=== PATIENT | female | born 1940 | race Caucasian/White ===

== ENCOUNTER 2017-05-23 07:12 | Inpatient (IN) | payer MEDICARE ==
[2017-05-23] MEDS ORDERED: RX INFO: IV CONTRAST WAS GIVEN 1 EACH MISC MISCELLANE PRN (07:34)
[2017-05-23] MEDS ORDERED: SODIUM CHLORIDE 0.9% 500 ML IV STA (07:34)
[2017-05-23] MEDS ORDERED: ONDANSETRON 4 MG/2 ML VIAL IVP STA (07:34)
--- NOTE | 2017-05-23 07:38 | ED ---
General Adult HPI - General Chief complaint: Abdominal Pain Stated complaint: Diverticulitis Time Seen by Provider: 05/23/17 07:20 Source: patient, RN notes reviewed Mode of arrival: wheelchair Limitations: no limitations - History of Present Illness Initial comments: This is a 76-year-old female presents emergency Department with abdominal pain for the last 3-4 days. Patient saw the primary medical care doctor he was sure the patient had diverticulitis and started to the patient for diverticulitis. Patient comes in today because she is having increased pain and vomiting and cannot keep anything down. Patient was supposed to follow up with her doctor today but was unable to. Patient denies any fever chills. Patient states the left side of her abdomen is more tender than the right. Patient denies any diarrhea. Patient denies any chest pain difficulty breathing or shortness of breath. - Related Data Home Medications Medication Instructions Recorded Confirmed ALPRAZolam [Xanax] 0.25 mg PO BID 07/12/16 05/23/17 Albuterol Sulfate [Proair Hfa] 2 puff INHALATION RT-Q6H PRN 07/12/16 05/23/17 Baclofen [Lioresal] 5 mg PO TID PRN 07/12/16 05/23/17 Hydroxychloroquine Sulfate 200 mg PO DIRECTED 07/12/16 05/23/17 [Plaquenil] Levothyroxine Sodium [Synthroid] 125 mcg PO DAILY 07/12/16 05/23/17 Oxybutynin Chloride [Ditropan] 5 mg PO BID 07/12/16 05/23/17 Pilocarpine HCl 7.5 mg PO BID 07/12/16 05/23/17 Potassium Chloride ER [K-Dur 10] 10 meq PO BID 07/12/16 05/23/17 traMADol-ACETAMINOP 37.5-325MG 1 tab PO Q6H PRN 07/12/16 05/23/17 [Ultracet] Ciprofloxacin HCl [Cipro] 500 mg PO Q12HR 05/23/17 05/23/17 Donepezil [Aricept] 10 mg PO DIRECTED 05/23/17 05/23/17 PARoxetine HCL [PARoxetine HCL] 40 mg PO DAILY 05/23/17 05/23/17 Prochlorperazine Maleate 5 mg PO Q6HR PRN 05/23/17 05/23/17 metroNIDAZOLE [Flagyl] 500 mg PO TID 05/23/17 05/23/17 Allergies Allergy/AdvReac Type Severity Reaction Status Date / Time cephalexin monohydrate AdvReac Nausea & Verified 05/23/17 07:46 [From Keflex] Vomiting codeine AdvReac Confusion Verified 05/23/17 07:46 morphine AdvReac Confusion Verified 05/23/17 07:46 Penicillins AdvReac Nausea & Verified 05/23/17 07:46 Vomiting Review of Systems ROS Statement: Those systems with pertinent positive or pertinent negative responses have been documented in the HPI. ROS Other: All systems not noted in ROS Statement are negative. Past Medical History Past Medical History: Dementia, Thyroid Disorder Additional Past Medical History / Comment(s): parkinsons History of Any Multi-Drug Resistant Organisms: None Reported Past Surgical History: Cholecystectomy, Hysterectomy Past Psychological History: No Psychological Hx Reported Smoking Status: Never smoker Past Alcohol Use History: None Reported Past Drug Use History: None Reported General Exam - General Exam Comments Initial Comments: GENERAL: Patient is well-developed and well-nourished. Patient is nontoxic and well- hydrated and is in moderate distress. ENT: Neck is soft and supple. No significant lymphadenopathy is noted. Oropharynx is clear. Dry mucous membranes. Neck has full range of motion without eliciting any pain. T. EYES: The sclera were anicteric and conjunctiva were pink and moist. Extraocular movements were intact and pupils were equal round and reactive to light. Eyelids were unremarkable. PULMONARY: Unlabored respirations. Good breath sounds bilaterally. No audible rales rhonchi or wheezing was noted. CARDIOVASCULAR: There is a regular rate and rhythm without any murmurs gallops or rubs. ABDOMEN: Abdomen is slightly tender on the left side but no rebound or guarding. SKIN: Skin is clear with no lesions or rashes and otherwise unremarkable. NEUROLOGIC: Patient is alert and oriented 2. Cranial nerves II through XII are grossly intact. Motor and sensory are also intact. Normal speech, volume and content. Symmetrical smile. MUSCULOSKELETAL: Normal extremities with adequate strength and full range of motion. No lower extremity swelling or edema. No calf tenderness. LYMPHATICS: No significant lymphadenopathy is noted PSYCHIATRIC: Normal psychiatric evaluation. Normal interpersonal interactions appears functionally intact in deals appropriately with others. No signs of depression. No signs of anxiety. Limitations: no limitations Course Vital Signs 05/23/17 07:19 Temperature 97.8 F Pulse Rate 118 H Respiratory 20 Rate Blood Pressure 141/75 O2 Sat by Pulse 98 Oximetry Medical Decision Making - Medical Decision Making I spoke with Dr. Bedolla but the patient since the patient was still having left- sided abdominal pain I admitted the patient and I consult to Dr. Dejuan Costello was in agreement with this. I wrote admitting orders. - Lab Data Result diagrams: 05/23/17 07:46 05/23/17 07:46 Lab Results 05/23/17 05/23/17 Range/Units 07:46 07:46 WBC 11.3 H (3.8-10.6) k/uL RBC 4.26 (3.80-5.40) m/uL Hgb 13.6 (11.4-16.0) gm/dL Hct 40.3 (34.0-46.0) % MCV 94.6 (80.0-100.0) fL MCH 31.9 (25.0-35.0) pg MCHC 33.7 (31.0-37.0) g/dL RDW 16.6 H (11.5-15.5) % Plt Count 309 (150-450) k/uL Neutrophils % 89 % Lymphocytes % 5 % Monocytes % 5 % Eosinophils % 0 % Basophils % 0 % Neutrophils # 10.1 H (1.3-7.7) k/uL Lymphocytes # 0.6 L (1.0-4.8) k/uL Monocytes # 0.5 (0-1.0) k/uL Eosinophils # 0.0 (0-0.7) k/uL Basophils # 0.0 (0-0.2) k/uL Anisocytosis Slight Sodium 143 (137-145) mmol/L Potassium 3.0 L* (3.5-5.1) mmol/L Chloride 108 H (98-107) mmol/L Carbon Dioxide 23 (22-30) mmol/L Anion Gap 12 mmol/L BUN 14 (7-17) mg/dL Creatinine 0.61 (0.52-1.04) mg/dL Est GFR (MDRD) Af Amer >60 (>60 ml/min/1.73 sqM) Est GFR (MDRD) Non-Af >60 (>60 ml/min/1.73 sqM) Glucose 203 H (74-99) mg/dL Calcium 9.4 (8.4-10.2) mg/dL Total Bilirubin 0.4 (0.2-1.3) mg/dL AST 18 (14-36) U/L ALT 16 (9-52) U/L Alkaline Phosphatase 94 (38-126) U/L Total Protein 6.5 (6.3-8.2) g/dL Albumin 3.9 (3.5-5.0) g/dL Amylase <30 L (30-110) U/L Lipase 62 (23-300) U/L Disposition Clinical Impression: Abdominal pain Disposition: ADMITTED IP TO THIS HOSP Referrals: Albert Costello MD [Primary Care Provider] - 1-2 days Time of Disposition: 10:14
[2017-05-23] MEDS ORDERED: SODIUM CHLORIDE 0.9% 1,000 ML IV ONE ×2 (07:39→10:15)
[2017-05-23 08:24] LABS: Anisocytosis Slight; Basophils % (A) 0 %; CHCM 34.1; Eosinophils % (A) 0 %; HCT 40.3 % (34.0-46.0); HDW 3.22; HGB 13.6 gm/dL (11.4-16.0); Luc # (Auto) 0.09; Luc % (Auto) 1; Lymphocytes # (A) 0.6 k/uL (1.0-4.8); Lymphocytes % (A) 5 %; MCH 31.9 pg (25.0-35.0); MCHC 33.7 g/dL (31.0-37.0); MCV 94.6 fL (80.0-100.0); Mean Platelet Volume 7.4; Monocytes # (A) 0.5 k/uL (0-1.0); Monocytes % (A) 5 %; Neutrophils # (A) 10.1 k/uL (1.3-7.7); Neutrophils % (A) 89 %; RBC 4.26 m/uL (3.80-5.40); RDW 16.6 % (11.5-15.5); WBC 11.3 k/uL (3.8-10.6); WBC (Perox) 11.02
[2017-05-23 08:40] LABS: ALT 16 U/L (9-52); AST 18 U/L (14-36); Alkaline Phosphatase 94 U/L (38-126); Amylase <30 U/L (30-110); Anion Gap 12 mmol/L; Blood Urea Nitrogen 14 mg/dL (7-17); Calcium 9.4 mg/dL (8.4-10.2); Carbon Dioxide 23 mmol/L (22-30); Chloride 108 mmol/L (98-107); Glucose 203 mg/dL (74-99); Non-African American GFR(MDRD) >60 (>60 ml/min/1.73 sqM); Sodium 143 mmol/L (137-145); Total Bilirubin 0.4 mg/dL (0.2-1.3); Total Protein 6.5 g/dL (6.3-8.2)
--- NOTE | 2017-05-23 09:31 | CT ---
EXAMINATION TYPE: CT abdomen pelvis w con DATE OF EXAM: 05/23/2017 COMPARISON: 08/13/2016 INDICATION: Pelvic pain, history of diverticulitis DLP: 368 mGycm, Automated exposure control for dose reduction was used. CONTRAST: 100 mL of Omnipaque 300. Study performed without Oral Contrast TECHNIQUE: Axial images were obtained from above the diaphragm to the pubic rami in the axial plane a t 5 mm thick sections. Reconstructed images are reviewed on the computer in the coronal plane. FINDINGS: Limited CT sections are obtained the lung bases. There is some stable thickening of the posterior la teral right lung base. Moderate-sized hiatal hernia is present.. CT ABDOMEN: Liver: Minimal fatty infiltration the liver. Spleen: Normal Pancreas: Fatty infiltrated and somewhat atrophic. Adrenal glands: The adrenal glands are normal. Gallbladder: Surgically absent. Kidneys: No masses are evident. No hydronephrosis is present. Tiny cortical renal cysts present on the right. Delayed images were obtained through the kidneys, which remain unremarkable. Aorta: Vascular calcification is within the aorta. Inferior vena cava: Normal. CT PELVIS: Small bowel loops are somewhat prominent. Normal colonic bowel gas is present. Appendix: Not identified Urinary bladder: Normal. Genitourinary structures: Uterus appears atrophic. Adnexal regions are clear. No free fluid is within the pelvis. Osseous structures: No suspicious lytic or sclerotic lesions. Scoliosis is present. Multilevel degene rative disc changes are present. IMPRESSIONS: 1. Some mild ileus upper abdomen may be present. 2. CT abdomen pelvis otherwise appears without acute changes. 3. No suspicious changes to suggest acute diverticulitis.
[2017-05-23] MEDS ORDERED: LORazepam 2 MG/ML SYRINGE IV STA (10:16)
[2017-05-23 10:21] LABS: Appearance,Urine Clear (Clear); Bilirubin,Urine Negative (Negative); Glucose,Urine (UA) Negative (Negative); Ketones,Urine Negative (Negative); Leukocyte Esterase,Urine Negative (Negative); Mucus,Urine Rare /hpf; Nitrite,Urine Negative (Negative); Particle Count 520; Protein,Urine 1+ (Negative); UA Billing (MACRO vs. MICRO) MICRO; Urobilinogen,Urine <2.0 mg/dL (<2.0); WBC,Urine 1 /hpf (0-5)
[2017-05-23] MEDS ORDERED: BACLOFEN 10 MG TAB PO PRN (15:09)
[2017-05-23] MEDS ORDERED: HYDROXYCHLOROQUINE SULFATE 200 MG TAB PO SCH (15:15)
[2017-05-23] MEDS ORDERED: DONEPEZIL 10 MG TAB PO SCH (15:15)
[2017-05-23] MEDS ORDERED: Potassium Replacement Protocol 1 EACH MISC MISCELLANE PRN ×2 (15:20→16:47)
[2017-05-23] MEDS ORDERED: POTASSIUM CHLORIDE ER 20 MEQ TAB.ER PO SCH (16:00)
[2017-05-23] MEDS ORDERED: POTASSIUM CHLORIDE 10 MEQ in WATER FOR INJECTION 1 100ML.BAG IVPB ONE (17:00)
--- NOTE | 2017-05-23 18:55 | P.GSCN ---
History of Present Illness Consult date: 05/23/17 Reason for Consult: Abdominal pain History of present illness: This is a 76-year-old female who is admitted to Dr. Gillespie service. Patient was admitted with complaints of abdominal pain nausea fevers and night sweats. The patient states that she has been being treated for diverticulitis as outpatient. Her condition worsened and she was admitted to the hospital. Patient's CAT scan does not show any evidence of diverticulitis currently. She states her pain is improved. It is mainly in the right left lower quadrant with some suprapubic pain. Past Medical History Past Medical History: Blood Disorder, Cancer, COPD, Dementia, Fibromyalgia, GERD /Reflux, Memory Impairment, Rheumatoid Arthritis (RA), Thyroid Disorder Additional Past Medical History / Comment(s): per pt's daughter pt has a "bleeding disorder-trouble clotting",parkinsons, cervical cancer, ulcers, shingles x2 last time 2011, past high cholesterol-but taken off meds. History of Any Multi-Drug Resistant Organisms: None Reported Past Surgical History: Appendectomy, Back Surgery, Cholecystectomy, Hysterectomy , Tonsillectomy Additional Past Surgical History / Comment(s): lt femur sx-cadaver bone, cervical plate. Past Anesthesia/Blood Transfusion Reactions: Previous Problems w/ Anesthesia Additional Past Anesthesia/Blood Transfusion Reaction / Comm: difficulty waking up, clausterphobia Smoking Status: Never smoker - Past Family History Mother Family Medical History: Cancer Additional Family Medical History / Comment(s): lung cancer Father Family Medical History: Dementia Additional Family Medical History / Comment(s): heart problems Medications and Allergies Home Medications Medication Instructions Recorded Confirmed Type ALPRAZolam [Xanax] 0.25 mg PO BID 07/12/16 05/23/17 History Albuterol Sulfate [Proair Hfa] 2 puff INHALATION RT-Q6H PRN 07/12/16 05/23/17 History Baclofen [Lioresal] 5 mg PO TID PRN 07/12/16 05/23/17 History Hydroxychloroquine Sulfate 200 mg PO DIRECTED 07/12/16 05/23/17 History [Plaquenil] Levothyroxine Sodium [Synthroid] 125 mcg PO DAILY 07/12/16 05/23/17 History Oxybutynin Chloride [Ditropan] 5 mg PO BID 07/12/16 05/23/17 History Pilocarpine HCl 7.5 mg PO BID 07/12/16 05/23/17 History Potassium Chloride ER [K-Dur 10] 10 meq PO BID 07/12/16 05/23/17 History traMADol-ACETAMINOP 37.5-325MG 1 tab PO Q6H PRN 07/12/16 05/23/17 History [Ultracet] Ciprofloxacin HCl [Cipro] 500 mg PO Q12HR 05/23/17 05/23/17 History Donepezil [Aricept] 10 mg PO DIRECTED 05/23/17 05/23/17 History PARoxetine HCL [PARoxetine HCL] 40 mg PO DAILY 05/23/17 05/23/17 History Prochlorperazine Maleate 5 mg PO Q6HR PRN 05/23/17 05/23/17 History metroNIDAZOLE [Flagyl] 500 mg PO TID 05/23/17 05/23/17 History Allergies Allergy/AdvReac Type Severity Reaction Status Date / Time cephalexin monohydrate AdvReac Nausea & Verified 05/23/17 07:46 [From Keflex] Vomiting codeine AdvReac Confusion Verified 05/23/17 07:46 morphine AdvReac Confusion Verified 05/23/17 07:46 Penicillins AdvReac Nausea & Verified 05/23/17 07:46 Vomiting Surgical - Exam Vital Signs Temp Pulse Resp BP Pulse Ox 97.8 F 118 H 20 141/75 98 05/23/17 07:19 05/23/17 07:19 05/23/17 07:19 05/23/17 07:19 05/23/17 07:19 - General well developed, no distress - Eyes PERRL - ENT normal pinna - Neck no masses - Respiratory normal expansion - Cardiovascular Rhythm: regular - Abdomen Abdomen soft. There is mild tenderness in the right left lower quadrant. There is no rebound or guarding. Abdomen: soft Results - Labs 05/23/17 07:46 05/23/17 07:46 Abnormal Lab Results - Last 24 Hours (Table) 05/23/17 05/23/17 05/23/17 Range/Units 07:46 07:46 09:50 WBC 11.3 H (3.8-10.6) k/uL RDW 16.6 H (11.5-15.5) % Neutrophils # 10.1 H (1.3-7.7) k/uL Lymphocytes # 0.6 L (1.0-4.8) k/uL Potassium 3.0 L* (3.5-5.1) mmol/L Chloride 108 H (98-107) mmol/L Glucose 203 H (74-99) mg/dL Amylase <30 L (30-110) U/L Ur Specific [place] 1.040 H (1.001-1.035) Urine Protein 1+ H (Negative) Urine Mucus Rare H (None) /hpf Diabetes panel 05/23/17 Range/Units 07:46 Sodium 143 (137-145) mmol/L Potassium 3.0 L* (3.5-5.1) mmol/L Chloride 108 H (98-107) mmol/L Carbon Dioxide 23 (22-30) mmol/L BUN 14 (7-17) mg/dL Creatinine 0.61 (0.52-1.04) mg/dL Glucose 203 H (74-99) mg/dL Calcium 9.4 (8.4-10.2) mg/dL AST 18 (14-36) U/L ALT 16 (9-52) U/L Alkaline Phosphatase 94 (38-126) U/L Total Protein 6.5 (6.3-8.2) g/dL Albumin 3.9 (3.5-5.0) g/dL Calcium panel 05/23/17 Range/Units 07:46 Calcium 9.4 (8.4-10.2) mg/dL Albumin 3.9 (3.5-5.0) g/dL Pituitary panel 05/23/17 Range/Units 07:46 Sodium 143 (137-145) mmol/L Potassium 3.0 L* (3.5-5.1) mmol/L Chloride 108 H (98-107) mmol/L Carbon Dioxide 23 (22-30) mmol/L BUN 14 (7-17) mg/dL Creatinine 0.61 (0.52-1.04) mg/dL Glucose 203 H (74-99) mg/dL Calcium 9.4 (8.4-10.2) mg/dL Adrenal panel 05/23/17 Range/Units 07:46 Sodium 143 (137-145) mmol/L Potassium 3.0 L* (3.5-5.1) mmol/L Chloride 108 H (98-107) mmol/L Carbon Dioxide 23 (22-30) mmol/L BUN 14 (7-17) mg/dL Creatinine 0.61 (0.52-1.04) mg/dL Glucose 203 H (74-99) mg/dL Calcium 9.4 (8.4-10.2) mg/dL Total Bilirubin 0.4 (0.2-1.3) mg/dL AST 18 (14-36) U/L ALT 16 (9-52) U/L Alkaline Phosphatase 94 (38-126) U/L Total Protein 6.5 (6.3-8.2) g/dL Albumin 3.9 (3.5-5.0) g/dL - Imaging CT scan - abdomen: report reviewed (Moderate size hiatal hernia. No evidence of bowel obstruction) Assessment and Plan Plan: Improving abdominal pain. Patient will be observed. Her UA is negative. We will start her on clear liquids. We will follow with you.
[2017-05-23] MEDS: ALBUTEROL NEBULIZED 2.5 MG/3 ML INHALATION SCH ×2 (20:38→21:05)
[2017-05-23] MEDS: metroNIDAZOLE 500 MG TAB PO SCH ×2 (21:05→21:15)
[2017-05-23] MEDS: CIPROFLOXACIN HCL 500 MG TAB PO SCH (21:15)
[2017-05-23] MEDS: PILOCARPINE 5 MG TAB PO SCH (21:15)
[2017-05-23] MEDS: OXYBUTYNIN CHLORIDE 5 MG TAB PO SCH (21:15)
[2017-05-23] MEDS: traMADol-ACETAMINOP 37.5-325MG 1 EACH TAB PO PRN (23:27)
[2017-05-24] MEDS: ACETAMINOPHEN TAB 325 MG TAB PO PRN (01:25)
[2017-05-24] MEDS: LEVOTHYROXINE 125 MCG TAB PO SCH (05:41)
--- NOTE | 2017-05-24 06:42 | HP ---
CHIEF COMPLAINT: Nonspecific abdominal pain for 3 or 4 days. This is a 76-year-old white female that came in with nonspecific abdominal pain , appeared to be recurrence of her diverticulitis so at that time I actually put her on some Flagyl and some Cipro. At that time, she developed a little bit of vomiting, a little bit of diarrhea. She had a CAT scan in the emergency room that was pretty much negative. She did have some chills. She did have some more right lower quadrant pain than usual, but had no diarrhea. She has had a chest pain with shortness of breath also. Her sensorium has been with a little bit more confusing than normal. Her allergies are to KEFLEX, CODEINE, MORPHINE and PENICILLIN. Her medications include that of the Flagyl 500 mg 3 times a day and she also was on Cipro 500 mg twice a day. She also takes Paxil 40 a day. She has been on Aricept 10 mg daily. She has been on tramadol up to every 6 hours and then she takes potassium chloride also. She has been on some Plaquenil up to 200 mg a day along with Baclofen up to 3 times a day, albuterol updrafts p.r.n., Xanax 0.25 b.i.d., thyroid 0.125 daily, 5 of Ditropan and pilocarpine drops ( ) . She has a long-standing history of borderline Parkinson's disease for which she is not taking any medications for that at this time. She has had a long- standing history of progressive dementia, thyroid disease. A generalized severe osteoarthritis, euthyroid, bladder incontinence severe lumbar muscle spasm. Again, presently diverticulitis, depression, which has been stable and chronic degenerative disc disease. Her surgical history is basic cholecystectomy, hysterectomy. Psychological history is she has anxiety and some depression, but it has been stable. She has had multidrug resistant organisms. SOCIAL HISTORY: Nonsmoker. She is a nondrinker. No drug use. She is and she is taken care of by her daughter and son-in-law. REVIEW OF SYSTEMS: CARDIOPULMONARY: No chest pain or shortness of breath. No orthopnea. No paroxysmal nocturnal dyspnea. GI: She has no nausea. She has nonspecific abdominal pain. No melena. No hematochezia. No diarrhea. : Increase in urination. NEUROMUSCULAR: Just the weakness and the tremor with Parkinson's disease. She has been recently taken off all Parkinson's medication per Dr. Farooq. He felt that it was just more benign tremor. Severe progressive arthritis that has been treated with Plaquenil. LYMPHATIC SYSTEM: Has been negative. INTEGUMENTARY SYSTEM: Changes in skin color in the lower legs according to the patient. At this time, this is an alert, white female, definitely more fatigued, mild pain at this period of time. She is fairly well developed and well nourished and hydrated fine. EYES: Pupils are equal, round and reactive to light and accommodation. There is no scleral icterus. Conjunctivae are fine. ENT: Neck is supple with midline trachea. No adenopathy. Good full range of motion of the neck. There is some dry mouth ( ). LUNGS: Good breath sounds bilaterally. CARDIOVASCULAR: Sinus rhythm. No murmur. Negative S3, negative S4. Abdomen is kind of soft. There is some tenderness, a little bit more on the left than right, but no rebound, no guarding. SKIN: No active lesion, but she does have some stasis dermatitis in her lower leg. NEUROLOGICAL: Patient is alert and oriented x2. Cranial nerves 2 through 12 are pretty much intact, symmetrical. Normal speech. MUSCULOSKELETAL: Normal extremities pretty much except for decreased pulses bilaterally. She does have tremor in her hands. Lymphatics are negative. PSYCHIATRIC: ( ) she does not appear depressed. A little bit anxious to be here in the hospital accordingly. Blood work was completed. She did have a 11.3 white count even being on antibiotics. She also had a hemoglobin that was actually 13.6 at this time with a normal platelet count. Her chemo-17, potassium slightly low at 3. GFR is greater than 60. Sugars elevated at 200 at this point. Otherwise amylase and lipase are normal. CAT scan completed of the abdomen was told ( ) to be negative by the emergency room physicians. I have not had a chance to review that yet. ASSESSMENT: 1. Abdominal pain with probably diverticulitis even though negative on x-ray. 2. History of hypokalemia. 3. Parkinson's disease. 4. Progressive dementia. 5. Some depression and anxiety. 6. Some progressive arthritis. 7. Chronic lumbar stenosis. 8. Euthyroid. 9 History of some mild chronic obstructive pulmonary disease. 10. Secondary hand smoke. She has been started on all her medications. We will continue antibiotics and lets get a surgical consult. Will watch her. Also, maybe she has some mild dehydration, not exactly sure here. Awaiting to review her urine. Will start her on some IV fluids. Please refer to my orders. Her prognosis at this time is guarded. Also blood sugars will be watched in the hospital. BLOSSOM
[2017-05-24 07:44] LABS: Anion Gap 11 mmol/L; Blood Urea Nitrogen 7 mg/dL (7-17); Calcium 8.8 mg/dL (8.4-10.2); Carbon Dioxide 23 mmol/L (22-30); Chloride 108 mmol/L (98-107); Glucose 87 mg/dL (74-99); Non-African American GFR(MDRD) >60 (>60 ml/min/1.73 sqM); Sodium 142 mmol/L (137-145)
[2017-05-24 07:51] LABS: Potassium 2.7 mmol/L (3.5-5.1)
[2017-05-24] MEDS: traMADol-ACETAMINOP 37.5-325MG 1 EACH TAB PO PRN (08:03)
[2017-05-24] MEDS: metroNIDAZOLE 500 MG TAB PO SCH (08:08)
[2017-05-24] MEDS: CIPROFLOXACIN HCL 500 MG TAB PO SCH ×2 (08:08→21:34)
[2017-05-24] MEDS: OXYBUTYNIN CHLORIDE 5 MG TAB PO SCH (08:09)
[2017-05-24] MEDS: PILOCARPINE 5 MG TAB PO SCH ×2 (08:09→21:34)
[2017-05-24] MEDS: POTASSIUM CHLORIDE 10 MEQ, LIDOCAINE 2% INJ 10 MG in SODIUM CHLORIDE 0.9% 100 ML IVPB SCH ×3 (08:52→11:13)
[2017-05-24] MEDS ORDERED: PARoxetine 20 MG TAB PO SCH (09:00)
[2017-05-24] MEDS: ALBUTEROL NEBULIZED 2.5 MG/3 ML INHALATION SCH ×3 (09:45→11:29)
[2017-05-24] MEDS ORDERED: ALBUTEROL NEBULIZED 2.5 MG/3 ML INHALATION PRN (11:28)
[2017-05-24] MEDS ORDERED: BACLOFEN 10 MG TAB PO PRN (11:33)
--- NOTE | 2017-05-24 13:10 | PN ---
Patient is alert with much less abdominal pain. Unfortunately, her tremoring is much worse related with her Parkinson's disease. She has seen Dr. Farooq in the past for this and her medication is accordingly. She is not taking any Parkinson's medication at this period of time, other than the use of he added Baclofen that she has been on because it has been so well controlled. At this period of time, she is having minimal to no abdominal pain. She is alert, oriented to person, place and thing, but her shaking in bed is just much more worse. REVIEW OF SYSTEMS: CARDIOPULMONARY: No shortness of breath, chest pain, no orthopnea or paroxysmal nocturnal dyspnea. GI: No hematemesis, no hematochezia. abdominal pain, has had recent bowel movement. : Her urination has been fine, urine culture we are awaiting on. NEUROMUSCULATURE: Shakes to the arms and the legs of interest. She has been started on the albuterol updrafts which will be set up on p.r.n. At this point, her vital signs review a blood pressure of 158/78, heart rate is in the 70's, temperature is 98.6, respiratory rate is 18. EYES: Pupils are equal, round and reactive to light and accommodation. ENT: Showed tympanic membranes that appear to be negative. Neck is supple. The midline trachea. Chest essentially clear to auscultation. HEART: Sinus rhythm with no murmur. Negative S1, negative S4. Abdomen is soft, some minimal tenderness in the left lower quadrant. LOWER EXTREMITIES: Minimal with no movement, some repetitive movement in her right and left arm and her wrist. At this time lab shows a 2.7 potassium and 142 sodium[address] Please refer to Dr. Zaidi's note. ASSESSMENT: 1. Severe hypokalemia. 2, Abdominal pain, probably mild diverticulitis, resolving. 3. History of Parkinson's disease. 4. Hypertension, well controlled at this time. PLAN: Will DC the albuterol, ( ) p.r.n.. We are also going to take her Baclofen and increase it to 4 times a day. Will keep her on the Cipro, stop the Flagyl, talk with her and her son today and will watch her accordingly. [facility]
--- NOTE | 2017-05-24 14:39 | P.PN ---
Progress Note - Text The patient is resting comfortably in her bed. She states her abdominal pain is improved. On exam her vital signs are stable. Her abdomen is soft. The patient receiving potassium replacement. Resolving diverticulitis. Patient will be observed. No surgical intervention is planned at this point.
[2017-05-24 14:43] VITALS: BMI 16.9
[2017-05-24] MEDS ORDERED: Potassium Replacement Protocol 1 EACH MISC MISCELLANE PRN (14:47)
[2017-05-24] MEDS ORDERED: POTASSIUM CHLORIDE ER 20 MEQ TAB.ER PO STA (14:49)
[2017-05-24] MEDS: POTASSIUM CHLORIDE 10 MEQ, LIDOCAINE 2% INJ 10 MG in SODIUM CHLORIDE 0.9% 100 ML IV SCH ×3 (15:35→18:23)
[2017-05-25] MEDS: LEVOTHYROXINE 125 MCG TAB PO SCH (06:24)
[2017-05-25] MEDS ORDERED: Potassium Replacement Protocol 1 EACH MISC MISCELLANE PRN ×2 (08:39→18:01)
[2017-05-25] MEDS: POTASSIUM CHLORIDE ER 10 MEQ TAB.ER.PRT PO SCH ×2 (08:48→21:03)
[2017-05-25] MEDS: PILOCARPINE 5 MG TAB PO SCH ×2 (08:48→21:03)
[2017-05-25] MEDS: CIPROFLOXACIN HCL 500 MG TAB PO SCH ×2 (08:48→21:02)
[2017-05-25] MEDS: PARoxetine 20 MG TAB PO SCH (08:48)
[2017-05-25] MEDS ORDERED: Magnesium Replacement Protocol 1 EACH MISC MISCELLANE PRN (09:21)
[2017-05-25] MEDS: POTASSIUM CHLORIDE 10 MEQ, LIDOCAINE 2% INJ 10 MG in SODIUM CHLORIDE 0.9% 100 ML IV SCH ×3 (09:26→13:35)
--- NOTE | 2017-05-25 09:48 | P.PN ---
Subjective Principal diagnosis: Diverticulitis Patient denies abdominal pain at this point. Still dealing with hypokalemia. Low-grade fever of 99.5. Tolerating diet. Objective - Vital Signs Vital signs: Vital Signs Temp 97.9 F 05/25/17 08:00 Pulse 109 H 05/25/17 08:00 Resp 18 05/25/17 08:00 BP 161/95 05/25/17 08:00 Pulse Ox 99 05/25/17 08:00 Intake & Output 05/24/17 05/25/17 05/25/17 18:59 06:59 18:59 Intake Total 460 Balance 460 Weight 50.349 kg Intake: Oral 460 Other: Voiding Method Toilet # Voids 1 3 2 # Bowel Movements 1 - Exam Abdomen: Soft, nontender, nondistended - Labs CBC & Chem 7: 05/23/17 07:46 05/25/17 07:48 Labs: Abnormal Lab Results - Last 24 Hours (Table) 05/24/17 05/25/17 05/25/17 Range/Units 13:55 07:48 07:48 Potassium 2.6 L* 2.5 L* (3.5-5.1) mmol/L Magnesium 1.3 L (1.6-2.3) mg/dL Assessment and Plan (1) Abdominal pain Narrative/Plan: Continue advancing diet. No surgical intervention planned at this point. We' ll sign off. Status: Acute
[2017-05-25 10:00] LABS: Anisocytosis Slight; Basophils % (A) 0 %; CH 32.2; Eosinophils # (A) 0.1 k/uL (0-0.7); Eosinophils % (A) 1 %; HCT 38.7 % (34.0-46.0); HDW 3.21; Luc # (Auto) 0.22; Luc % (Auto) 2; Lymphocytes # (A) 1.9 k/uL (1.0-4.8); Lymphocytes % (A) 18 %; MCH 32.1 pg (25.0-35.0); MCHC 33.7 g/dL (31.0-37.0); MCV 95.4 fL (80.0-100.0); Monocytes # (A) 0.5 k/uL (0-1.0); Monocytes % (A) 4 %; Neutrophils % (A) 75 %; RBC 4.06 m/uL (3.80-5.40); RDW 16.6 % (11.5-15.5); WBC 10.6 k/uL (3.8-10.6); WBC (Perox) 10.86
[2017-05-25] MEDS: MAGNESIUM SULFATE-D5W PMX 1 GM in DEXTROSE/WATER 1 100ML.BAG IVPB SCH ×3 (10:17→13:35)
[2017-05-25] MEDS: ATENOLOL 25 MG TAB PO SCH (10:17)
[2017-05-25] MEDS: ONDANSETRON 4 MG/2 ML VIAL IVP PRN ×2 (10:20→21:05)
--- NOTE | 2017-05-25 11:09 | XR ---
EXAMINATION TYPE: XR chest 1V portable DATE OF EXAM: 05/25/2017 HISTORY: tachycardia. REFERENCE: NONE. FINDINGS: There has been a previous ACDF in the lower cervical spine. The lungs are clear. Pleural spaces are clear. The heart is mildly prominent. IMPRESSION: MILD CARDIOMEGALY.
[2017-05-25 11:43] LABS: Appearance,Urine Clear (Clear); Bacteria,Urine Rare /hpf; Bilirubin,Urine Negative (Negative); Glucose,Urine (UA) Negative (Negative); Ketones,Urine 1+ (Negative); Leukocyte Esterase,Urine Negative (Negative); Mucus,Urine Rare /hpf; Nitrite,Urine Negative (Negative); PH, Urine 7.5 (5.0-8.0); Particle Count 599; Protein,Urine Negative (Negative); RBC,Urine 2 /hpf (0-5); Specific Gravity,Urine 1.007 (1.001-1.035); Squamous Epithelial Cell,Urine <1 /hpf (0-4); UA Billing (MACRO vs. MICRO) MICRO; Urobilinogen,Urine <2.0 mg/dL (<2.0); WBC,Urine 1 /hpf (0-5)
[2017-05-25] MEDS: ACETAMINOPHEN TAB 325 MG TAB PO PRN (16:05)
--- NOTE | 2017-05-25 18:59 | PN ---
76 -year-old white female that had nonspecific abdominal pain, came into the office with left lower quadrant pain to palpation and because of her previous history of diverticulitis was started on Flagyl and Cipro. Talked to the family the next day, she has improved greatly. Also, she had some vomiting and diarrhea and became somewhat lethargic and came to the emergency room. CT scan of the abdomen was done which was pretty much negative. She did have some chills at that time and of interest is her pain was actually in the right lower quadrant. Diarrhea had resolved. She had a period of chest pain and some shortness of breath which resolved, very short stay, intermittent, alleviated on its own without treatment. Her sensorium had been more confusing than normal. HER ALLERGIES ARE TO KEFLEX, CODEINE, MORPHINE AND PENICILLIN. MEDICATIONS: 1. Tylenol 650 prn 6 hours for pain. 2. Albuterol updraft every 8 hours for shortness of breath. 3. Baclofen 5 mg q.i.d. 4. Cipro 500 mg every 12. 5. Synthroid 0.125 daily. 6. Magnesium replacement. 7. Potassium replacement. 8. Zofran prn nausea. 9. 20 Paxil daily. 10. Pilocarpine 7.5 po b.i.d. 11. Oral potassium 10 mg b.i.d. 12. Tramadol. 13. Ultracet one every six hours prn for anxiety. 14. Flagyl has been d/c on her. She has longstanding history of Parkinsons disease, thyroid with progressive dementia. She has had generalized osteoarthritis, euthyroid, bladder incontinence with severe lumbar spasm, severe degenerative disc disease, previous history of diverticulitis, she had previous depression which has been stable and chronic cervical arthritis. Her past history for surgery is that of cholecystectomy and hysterectomy. Psychological history is anxiety and depression but that has been stable lately. She has not had multidrug resistant organisms to be correct. SOCIAL HISTORY: She is , nonsmoker, nondrinker, no drug use. She is taken care of by her daughters on along period. REVIEW OF SYSTEMS: CARDIOPULMONARY: No shortness of breath. No chest pain. No orthopnea. No paroxysmal nocturnal dyspnea. She was doing some wheezing and has some shortness of breath upon admission. GI: At this time, she denies abdominal pain. She has just a fullness. No nausea or vomiting, no melena, hematochezia or diarrhea. : She has increase in urination. Neuromuscular: Just the weakness and the tremors and the Parkinsons disease. She had been recently seeing Dr. Farooq who has just basically had her on nonspecific medications. She has been on Plaquenil for her severe arthritis. Dr. Farooq feels this is more probably benign tremor but cannot deny Parkinsons disease via her MRI. The lymphatic system has been pretty much negative. Integument: Just the changes in lower leg, skin changes and stasis dermatitis. Lab work: Potassium is still low after 60 mg replacement IV and 20 po. A.M potassium of 2.5 and low magnesium 1.3. Vital signs this morning, she had blood pressure of 160/95. Heart rate 109. Respiratory rate is 18. Temperature 97.8. Eyes: Pupils equal, round and reactive to light and accommodation. ENT shows a dry mouth. Neck is supple. Midline trachea. Chest is essentially clear with decreased breath sounds lower. Lungs: No wheezes. No rales. No rhonchi. Heart is sinus rhythm but taching right around 100. Negative S3, negative S4. Abdomen is soft. No real tenderness to palpation. No rebound. No palpable masses. : Urination is fair. Tremors in the upper arm, shake and the legs and movement of the legs are much less today. She has decreased strength in her arms and legs, very difficult to stand. Neurological: Grossly otherwise is intact. Cranial nerves 2 thru 12 grossly intact. ASSESSMENT: At this time: 1. Resolving abdominal pain of questionable etiology. Probability of diverticulitis, mild. 2. Long standing history of Parkinsons disease. 3. Severe hypokalemia, remains probably from lost vomiting and diarrhea. 4. Progressive dementia. 5. Depression, anxiety which has been stable. 6. Generalized osteoarthritis with severe lumbar stenosis. 7. Hypomagnesemia. 8. Tachycardia secondary from questionable etiology, rule out lung pathology. Metabolic pathology. PLAN: Potassium replacement needs to be done again today. We will give her another 30 and then lab and 30 again if potassium is not up to 3.4. portal chest x-ray, to rule out any lung pathology. IV fluids, Is and Os will be followed accordingly. Add Tenormin 25 mg daily both for blood pressure and tachycardia. Urinalysis for evaluation of infection versus fluid status. CBC and chem-17 will be done tomorrow. Prognosis still guarded. MTDD
[2017-05-25] MEDS: POTASSIUM CHLORIDE ER 20 MEQ TAB.ER PO SCH ×3 (19:06→22:09)
[2017-05-26] MEDS: POTASSIUM CHLORIDE 10 MEQ, LIDOCAINE 2% INJ 10 MG in SODIUM CHLORIDE 0.9% 100 ML IVPB SCH ×3 (01:58→04:12)
[2017-05-26] MEDS ORDERED: POTASSIUM CHLORIDE 20 MEQ, LIDOCAINE 2% INJ 20 MG in SODIUM CHLORIDE 0.9% 100 ML IVPB SCH (02:00)
[2017-05-26] MEDS: LEVOTHYROXINE 125 MCG TAB PO SCH (06:22)
[2017-05-26] MEDS: ONDANSETRON 4 MG/2 ML VIAL IVP PRN ×2 (06:41→19:59)
[2017-05-26] MEDS: PILOCARPINE 5 MG TAB PO SCH ×2 (08:39→20:48)
[2017-05-26] MEDS: CIPROFLOXACIN HCL 500 MG TAB PO SCH ×2 (08:39→20:48)
[2017-05-26] MEDS: POTASSIUM CHLORIDE ER 10 MEQ TAB.ER.PRT PO SCH ×2 (08:39→23:31)
[2017-05-26] MEDS: ATENOLOL 25 MG TAB PO SCH (08:39)
[2017-05-26] MEDS: PARoxetine 20 MG TAB PO SCH (08:40)
[2017-05-26 11:29] LABS: ALT 26 U/L (9-52); AST 21 U/L (14-36); Alkaline Phosphatase 77 U/L (38-126); Anion Gap 5 mmol/L; Blood Urea Nitrogen 3 mg/dL (7-17); Calcium 8.2 mg/dL (8.4-10.2); Carbon Dioxide 25 mmol/L (22-30); Chloride 112 mmol/L (98-107); Glucose 79 mg/dL (74-99); Magnesium 1.6 mg/dL (1.6-2.3); Non-African American GFR(MDRD) >60 (>60 ml/min/1.73 sqM); Potassium 3.2 mmol/L (3.5-5.1); Sodium 142 mmol/L (137-145); Total Bilirubin 0.7 mg/dL (0.2-1.3); Total Protein 5.6 g/dL (6.3-8.2)
[2017-05-26] MEDS ORDERED: Potassium Replacement Protocol 1 EACH MISC MISCELLANE PRN ×2 (12:53→18:53)
[2017-05-26] MEDS ORDERED: Magnesium Replacement Protocol 1 EACH MISC MISCELLANE PRN (12:55)
[2017-05-26] MEDS: MAGNESIUM SULFATE-D5W PMX 1 GM in DEXTROSE/WATER 1 100ML.BAG IVPB SCH ×2 (15:19→16:39)
[2017-05-26] MEDS: POTASSIUM CHLORIDE ER 20 MEQ TAB.ER PO SCH ×4 (15:19→21:40)
[2017-05-26] MEDS: ACETAMINOPHEN TAB 325 MG TAB PO PRN (16:16)
[2017-05-26 18:48] LABS: Magnesium 2.3 mg/dL (1.6-2.3); Potassium 3.4 mmol/L (3.5-5.1)
[2017-05-27] MEDS ORDERED: Potassium Replacement Protocol 1 EACH MISC MISCELLANE PRN (02:16)
[2017-05-27] MEDS: POTASSIUM CHLORIDE 10 MEQ, LIDOCAINE 2% INJ 10 MG in SODIUM CHLORIDE 0.9% 100 ML IV SCH ×2 (02:44→04:02)
[2017-05-27] MEDS: ACETAMINOPHEN TAB 325 MG TAB PO PRN ×2 (02:46→14:45)
[2017-05-27] MEDS: LEVOTHYROXINE 125 MCG TAB PO SCH (06:11)
[2017-05-27] MEDS: CIPROFLOXACIN HCL 500 MG TAB PO SCH ×2 (08:16→20:13)
[2017-05-27] MEDS: PILOCARPINE 5 MG TAB PO SCH ×2 (08:16→20:13)
[2017-05-27] MEDS: PARoxetine 20 MG TAB PO SCH (08:17)
[2017-05-27] MEDS: ATENOLOL 25 MG TAB PO SCH (08:17)
[2017-05-27] MEDS: POTASSIUM CHLORIDE ER 20 MEQ TAB.ER PO SCH ×2 (08:19→20:14)
[2017-05-27 08:56] LABS: Magnesium 1.7 mg/dL (1.6-2.3); Potassium 3.7 mmol/L (3.5-5.1)
[2017-05-27] MEDS: ONDANSETRON 4 MG/2 ML VIAL IVP PRN ×2 (09:45→20:12)
--- NOTE | 2017-05-27 10:17 | PN ---
This is a 76-year-old white female that came in with nonspecific abdominal pain to my office with a longstanding history of diverticulitis. She had some pain in her left lower quadrant, was immediately started on Flagyl and Cipro. At that period of time she pretty much refused to go into the hospital. We were treating her diverticulitis and I talked to the family the next day and patient was greatly improved. Unfortunately, she developed vomiting, diarrhea and became somewhat lethargic. Came to the emergency room. At that period of time CAT scan of the abdomen was done which was pretty much negative. She did have some chills and she did have some actual pain. Twenty-four hours later she was actually having more pain the right lower quadrant. Diarrhea has, at this time , resolved. She has had her chest pain and shortness of breath which also resolved. Her chest pain was very short period of time, nonspecific location, intermediate and alleviated on its own without treatment. Her sensorium has been confused and now is much closer to normal. ALLERGIES: KEFLEX, CODEINE, MORPHINE, PENICILLIN. MEDICATIONS: 1. Potassium replacement by protocol. 2. Magnesium replacement by protocol. 3. Tylenol 650 every six hours. 4. Albuterol updrafts every 8 p.r.n. 5. Baclofen 5 q.i.d. 6. Cipro 500 q12. 7. Synthroid 0.125 daily. 8. Zofran 4 mg IV push p.r.n. nausea. 9. Paxil 20 mg daily. 10. Pilocarpine 7.5 b.i.d. 11. Oral potassium 10 b.i.d. 12. Tramadol 50 q6h p.r.n. pain. 13. She is also on Xanax 0.5 q8h p.r.n. anxiety. 14. Her Flagyl has been d/c'd. She has a longstanding history of Parkinson's disease and does see Dr. Farooq. She has progressive thyroid disease and progressive dementia. She has had severe osteoarthritis, euthyroid, bladder incontinence and severe lumbar spasm. She has severe degenerative disc disease, previous history of multiple diverticulosis and chronic cervical spine arthritis. PAST SURGICAL HISTORY: Cholecystectomy and hysterectomy. PSYCHOLOGICAL HISTORY: Anxiety neurosis and depression. SOCIAL HISTORY: She is a , nonsmoker, nondrinker. No drug use. She is taken care of by her daughter and son-in-law. REVIEW OF SYSTEMS: CARDIOPULMONARY: Originally she had shortness of breath and she did have some cough and chest pain but no orthopnea, no paroxysmal nocturnal dyspnea. She has done some wheezing upon early admission. GI: She denies abdominal pain at this time but she did have some feeling of fullness and pain in the right lower and right upper quadrants. No melena, no hematochezia, no diarrhea, no constipation. : She had increase in urination. NEUROMUSCULAR: She has had weakness and tremors of Parkinson's disease for years. She is recently seeing Dr. Farooq who has basically had her on medication. She was also taking Plaquenil for severe arthritis. She has seen the arthritis specialist for this. She also had some history of benign tremor versus Parkinson's disease and Dr. Farooq is caring for that accordingly. LYMPHATIC SYSTEM: Negative. INTEGUMENT: She has changes in her lower legs. There is no stasis dermatitis. She also has very thin skin, multiple bruising. LAB WORK: Today her sodium is 142, potassium 3.1. Creatinine is 0.48 with 3 BUN. Liver function tests are normal. Urine has been completed. We are waiting on the blood cultures. PHYSICAL EXAMINATION: Today revealed a blood pressure of 160/78, heart rate in 70's, respiratory rate 18, temperature 97.8. EYES: Pupils are equal, round, react to light and accommodation. ENT: Showed tympanic membranes and pharynx to be negative. NECK: Supple with midline trachea. CHEST: Decreased wheezes. No rhonchi, no rales. HEART: Sinus rhythm with no murmur. Negative S3, negative S4. ABDOMEN: Soft. No palpable masses. No organomegaly. : Good urination. No problems with urination. NEUROMUSCULAR: She has twitching in her arms and her legs with movements but they are much less than initially. She does have some cogwheel rigidity. She is able to stand with assistance and walk to her restroom and to her chair. She has good sensation in her lower legs and good palpable lower extremity pulses for vasculature. INTEGUMENTARY: Stasis dermatitis in her legs and very multiple bruises on her arms and her hands. ENDOCRINE: She has no history of endocrine disorder. Thyroid is within normal limits. ASSESSMENT: 1. Resolving abdominal pain of questionable etiology. The suspicion of diverticulitis is still there. 2 . Longstanding history of Parkinson's disease. 3. Severe hypokalemia which is finally coming to normal after 80 mg of potassium a day. 4. Since admission progressive dementia. 5. Depression and anxiety have been stable. 6. Generalized osteoarthritis and severe lumbar stenosis. 7. Hypomagnesemia of 1.8. Magnesium is being replaced. 8. Tachycardia of questionable etiology which is now resolved with the use of the addition of the Tenormin 25 mg daily. PLAN: 1. Will continue potassium/magnesium protocol. 2. We are going to continue her Tenormin. 3. Ambulation with possibility of home in the a.m. [facility]
--- NOTE | 2017-05-28 05:16 | PN ---
A 76-year-old white female came with abdominal pain, seen earlier in the office , found to have diverticulitis, placed on Flagyl and Cipro and this seemed to improve. Unfortunately 2 days later, the patient had some vomiting, some diarrhea. Became lethargic and came to the emergency room. At that time, CT of the abdomen was pretty much negative and of interest is that she had more right lower quadrant pain than left quadrant pain. She did have some chills at that time and some diarrhea, which had just resolved. The questionable period of time was of how long she had diarrhea and vomiting was unknown at this time. Of interest is that she had severe hypokalemia down in the 2.7 range. We spent 3 days with replacement receiving 80 mg of potassium per day until now we just at 3.4. She is no longer having bad abdominal pain. There is no real cramps. At this time, she has allergy to KEFLEX, CODEINE, MORPHINE and PENICILLIN. Her medications include: 1. Tylenol 650 every 6 hours per pain. 2. Albuterol updrafts up to every 8 hours for shortness of breath. 3. Baclofen 5 mg 4 times a day. 4. Cipro 500 every 12. 5. Synthroid 0.125. 6. Magnesium, potassium replacement. 7. Zofran 4 mg IV push for nausea. 8. Paxil 20 mg daily. 9. Pilocarpine 7.5 b.i.d. 10. Also oral potassium now 20 twice a day. 11. Tramadol p.r.n. pain. 12. Xanax every 6 hours of 0.5 for anxiety. Her Flagyl has been discontinued. She has a long-standing history of Parkinson's disease in the past medical history here, thyroid and progressive dementia. She has some generalized arthritis, euthyroid, bladder incontinence and severe lumbar spasm. She also has severe degenerative disc disease. Previous history of diverticulitis. She has had depression and chronic pain. Her past medical history for surgeries is that of cholecystectomy and hysterectomy. PSYCHOLOGICAL: She has a long-standing history of anxiety and depression and she does have that history of progressive dementia. SOCIAL HISTORY: , a nonsmoker, nondrinker. No drug use. She is taken care of by her daughter and son-in-law. REVIEW OF SYSTEMS: CARDIOPULMONARY: No shortness of breath or chest pain. No orthopnea. No paroxysmal nocturnal dyspnea. She had been having some wheezes and shortness of breath upon admission, which is decreased now. GI: She had abdominal pain as previously described. She also has a constant fullness. No nausea or vomiting. No melena, hematochezia or diarrhea. Her weight is holding her own. She is tolerating a soft diet at this time. : She has increase in urination. NEUROMUSCULAR: Just the weakness and tremors related with Parkinson's disease. She is seeing Dr. Farooq for treatment at this time. The lymphatic system has been pretty much negative in the past. INTEGUMENTARY: She has some stasis dermatitis changes on her legs and some bruising, which she complains about. LAB WORK: At this time, potassium is still at 3.2 and we are awaiting for magnesium level. Vital signs at this time, blood pressure is 148/90, heart rate is 88, respiratory rate is 18, temperature is 97.8. EYES: Pupils are equal, round, react to light and accommodation. ENT shows dry mouth. Neck is supple and midline trachea. CHEST: Essentially clear to auscultation, but she has decreased breath sounds throughout. There is no wheezing. No rhonchi. No rales. HEART: Sinus rhythm. She was tachycardic. Now she is in her 80s. ABDOMEN: Soft, was really nontender to palpation. No rebound. No palpable masses. No organomegaly. : Her urination is excessive. MUSCULOSKELETAL: Tremor in the upper arm. She has some shakes in legs and movement of her legs are much less at this period of time, however, she has decreased strength bilaterally. NEUROLOGICALLY: Grossly otherwise intact. Cranial nerves 2 through 12 are grossly intact and psychologically, she well oriented to person, place and thing , answers questions. Understands what I am saying. ASSESSMENT: 1. Resolving abdominal pain, probably mild case of diverticulitis with severe dehydration, hypovolemia and hypokalemia secondary from vomiting and urination. 2. She has a long-standing history of Parkinson's disease. 3. Severe hypokalemia from vomiting and diarrhea. 4. Progressive dementia. 5. Depression, anxiety, which is stable. 6. Generalized osteoarthritis and lumbar stenosis. 7. Hypomagnesemia, which is ( ) tachycardia probably secondary from metabolic. PLAN: Continue the potassium replacement at this period of time. I also added 20 mEq of potassium b.i.d. Will continue with the IV fluids. Hopefully by the morning, we will be able to send her home. Her prognosis is very guarded. I spent 35 minutes with her today. BLOSSOM
[2017-05-28] MEDS: ACETAMINOPHEN TAB 325 MG TAB PO PRN (06:14)
[2017-05-28] MEDS: LEVOTHYROXINE 125 MCG TAB PO SCH (06:14)
[2017-05-28 08:00] VITALS: BP 148/82; PULSE 85; RESP 16; TEMP 99
[2017-05-28] MEDS: ONDANSETRON 4 MG/2 ML VIAL IVP PRN (08:07)
[2017-05-28] MEDS: PILOCARPINE 5 MG TAB PO SCH (08:07)
[2017-05-28] MEDS: ATENOLOL 25 MG TAB PO SCH (08:08)
[2017-05-28] MEDS: PARoxetine 20 MG TAB PO SCH (08:08)
[2017-05-28] MEDS: POTASSIUM CHLORIDE ER 20 MEQ TAB.ER PO SCH (08:08)
[2017-05-28] MEDS: CIPROFLOXACIN HCL 500 MG TAB PO SCH (08:08)
--- NOTE | 2017-05-31 16:50 | DS ---
DATE OF ADMISSION: 05/24/2017 DATE OF DISCHARGE: 05/28/2017 DISCHARGE DIAGNOSES: 1. Abdominal pain, resolving; probable diverticulitis. 2. Long-standing history of Parkinson's disease. 3. Severe hypokalemia. 4. Hypomagnesemia. 5. Progressive dementia. 6. Anxiety, stable. 7. Generalized osteoarthritis. 8. Tachycardia of questionable etiology. This is a 76-year-old white female who was admitted with generalized abdominal pain after being treated for diverticulitis in the office. She had left lower quadrant pain to begin with, then progressed to right lower quadrant pain. ( ) CT scan was basically normal. She responded to IV antibiotics of Flagyl and Cipro. There was some question whether the Flagyl might have caused some severe diarrhea and vomiting that she had ( ) hospital with the use of IV fluids able to retain her normal fluid level back to normal. We also had to replace some potassium. It took us 4 days to get her potassium replacement back up to 3.7, where it is at this time. She is being discharged home at this time in really good condition. She is well oriented to person, place and thing. Chest is essentially clear to auscultation. Heart is in sinus rhythm. Abdomen is soft, non-tender, with no organomegaly. Lower extremities are normal. Mentally she is well oriented to person, place and thing. She will be discharged home on a regular diet. Her activity is ( ) she will be at home with her daughter. DISCHARGE MEDICATIONS: 1. She can be on albuterol updrafts up to 3 times a day. 2. Tylenol 650 p.r.n. pain. 3. Tenormin 25 mg a day. 4. Baclofen 5 mg 4 times a day. 5. Cipro: she has actually had a full course of that. That will be discontinued at this time. 6. Levothroid 0.125 daily. 7. Paxil 20 mg daily. 8. Pilocarpine 7.5 b.i.d. 9. Potassium 20 b.i.d. 10. Ultracet every 6 hours p.r.n. pain. She will follow up with me in a week. [facility]
== END 2017-05-28 10:15 | disposition home or self-care (01) | DRG 392 ==
LOC: EC 07:12 → 3OBS 10:15 → OBSVTOIN 05-24 15:35 → 4MS4W 05-24 18:55
PROVIDERS: ADMIT Family Medicine; ATTEND Family Medicine
DX: K57.92 Diverticulitis of intestine, part unspecified, without perforation or abscess without bleeding (principal); G20 Parkinson's disease; F03.90 Unspecified dementia, unspecified severity, without behavioral disturbance, psychotic disturbance, mood disturbance, and anxiety; E86.0 Dehydration; E83.42 Hypomagnesemia; J44.9 Chronic obstructive pulmonary disease, unspecified; E86.1 Hypovolemia; M06.9 Rheumatoid arthritis, unspecified; E87.6 Hypokalemia; F32.9 Major depressive disorder, single episode, unspecified; M15.9 Polyosteoarthritis, unspecified; M48.06 Spinal stenosis, lumbar region; R32 Unspecified urinary incontinence; E78.00 Pure hypercholesterolemia, unspecified; F41.1 Generalized anxiety disorder; I10 Essential (primary) hypertension; K21.9 Gastro-esophageal reflux disease without esophagitis; M79.7 Fibromyalgia; Z79.899 Other long term (current) drug therapy; Z86.19 Personal history of other infectious and parasitic diseases; Z90.49 Acquired absence of other specified parts of digestive tract; Z90.710 Acquired absence of both cervix and uterus; Z77.22 Contact with and (suspected) exposure to environmental tobacco smoke (acute) (chronic); Z85.41 Personal history of malignant neoplasm of cervix uteri; Z88.0 Allergy status to penicillin; Z88.1 Allergy status to other antibiotic agents; Z88.5 Allergy status to narcotic agent; E07.9 Disorder of thyroid, unspecified; G89.29 Other chronic pain
CPT/HCPCS: 36415; 71010; 74177; 80048; 80053; 81001; 82150; 83690; 83735; 84132; 85025; 96361; 96374; 96375; 99285

== ENCOUNTER → 2017-09-03 | Outpatient (CLI) | payer MEDICARE | END | disposition home or self-care (01) | LOC: LABWHC1 13:48 | PROVIDERS: ATTEND Family Medicine | DX: E03.9 Hypothyroidism, unspecified (principal); I10 Essential (primary) hypertension; G35 Multiple sclerosis; J45.998 Other asthma | CPT/HCPCS: 36415; 84439; 84443 ==